=== PATIENT | female | born 2000 | race Caucasian/White ===

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

== ENCOUNTER 2019-06-21 15:01 | Emergency (ER) | payer MEDICAID ==
[~2019-06-21] VITALS: Ht 165.1 cm; Wt 73.0 kg
[2019-06-21] MEDS ORDERED: TETANUS, DIPHTHERIA, PERTUSSIS VAC/PF 0.5ML (>7YR OLD) IM ONE (17:30)
[2019-06-21] MEDS ORDERED: BACITRACIN ZINC OINT UDPKT TOP ONE (17:30)
[2019-06-21 18:07] VITALS: BP 107/82
== END 2019-06-21 18:09 | disposition home or self-care (01) ==
LOC: ER 15:01
DX: S61.452A Open bite of left hand, initial encounter (principal); S61.451A Open bite of right hand, initial encounter; Z88.6 Allergy status to analgesic agent; Z91.018 Allergy to other foods; W54.0XXA Bitten by dog, initial encounter; Y93.89 Activity, other specified; Y92.018 Other place in single-family (private) house as the place of occurrence of the external cause
CPT/HCPCS: 90471; 90715; 99283

== ENCOUNTER 2020-01-23 23:57 | Emergency (ER) | payer MEDICAID ==
[~2020-01-23] VITALS: Ht 165.1 cm; Wt 89.0 kg
[2020-01-24] MEDS ORDERED: ACETAMINOPHEN 325MG TABLET PO ONE (00:45)
[2020-01-24 02:30] VITALS: BP 117/74
== END 2020-01-24 02:30 | disposition home or self-care (01) ==
LOC: ER 23:57
DX: S92.354B Nondisplaced fracture of fifth metatarsal bone, right foot, initial encounter for open fracture (principal); W10.8XXA Fall (on) (from) other stairs and steps, initial encounter; Y93.01 Activity, walking, marching and hiking; Y92.89 Other specified places as the place of occurrence of the external cause
CPT/HCPCS: 73590; 73610; 73630; 81025; 99284; Z7610